=== PATIENT | male | born 1970 | race Caucasian/White ===

== ENCOUNTER 2017-03-08 18:45 | Inpatient (IN) ==
--- NOTE | 2017-03-08 19:13 | Emergency Department Note ---
START Narrative - START START: I examined this patient and my medical decision-making was reviewed with the Resident Physician. I agree with the documented findings, disposition and treatment plan as described except to the extent set forth below. Patient was independently seen and evaluated by myself. Patient was seen with the emergency medicine resident BRIAN BERNARDO. Please see copy of his notes for details of this ED encounter management and disposition. Briefly: A 47-year-old male by EMS from the local [facility] for hypernatremia". Patient's sodium is 125 potassium is 2.5 patient is unable tolerate oral supplements. unwitnessed hematemesis. Elevated transaminases. Patient will be admitted for potassium repletion and saline infusion. Admission pending.
--- NOTE | 2017-03-08 19:16 | Emergency Department Note ---
Disposition Clinical Impression: Hyponatremia, Hypochloremia, Hypokalemia Intractable nausea and vomiting Qualifiers: Vomiting type: unspecified Qualified Code(s): R11.2 - Nausea with vomiting, unspecified Alcohol withdrawal Qualifiers: Complication of substance-induced condition: uncomplicated Qualified Code(s): F10.230 - Alcohol dependence with withdrawal, uncomplicated Disposition: Admitted As Inpatient Condition: Fair [facility]errals: [facility] [Primary Care Provider] - Forms: Work/School Release, ED Satisfaction Letter Time of Disposition: 20:26 Nausea/Vomiting/Diarrhea HPI - General Chief complaint: ED Nausea/Vomiting/Diarrhea Stated complaint: hyponatremia Time Seen by Provider: 03/08/17 18:52 Source: patient, EMS Mode of arrival: EMS Limitations: no limitations Nursing Notes Reviewed: Yes Vital Signs Reviewed: Yes - History of Present Illness HPI Narrative: Patient is a 47-year-old male with past medical history of bipolar disorder, alcohol abuse, GERD. He presents today from the [facility] due to vomiting, detox, generalized body aches, concern for possible hematemesis. Patient states that he usually drinks a fifth of whiskey almost daily. About a week ago, patient decided to self detox. He has been experiencing generalized body aches, nausea, vomiting daily. Today he presented to the [facility] due to continued nausea and vomiting. While there, he had an episode of vomiting that was "tea-colored "an spelled like blood. He denied any bright red blood in vomit. Denies any significant pain in the abdomen. He is transferred here for further care. On patient's outside labs, he was also found to have hyponatremia at 127, hypokalemia at 2.4, low chloride 81. Mild elevation in total bilirubin at 1.8. AST and ALTs are elevated at 249 and 132 respectively. Hemoglobin stable at 17.1. White blood cell count 9.6. Vitals are currently stable. Currently, patient admits to continued nausea. No active vomiting at this time but the patient cannot tolerate any liquids. Otherwise, denies chest pain, shortness of breath, fevers, diarrhea. He has not had a bowel movement in 3-4 days. - Related Data Allergies Allergy/AdvReac Type Severity Reaction Status Date / Time bee venom protein (honey bee) Allergy Hives Verified 03/08/17 18:49 Poison Stephy Extract Allergy Hives Verified 03/08/17 18:49 All systems ED: reviewed and negative except as stated. Constitutional: Denies: fever Cardiovascular: Denies: chest pain, palpitations Respiratory: Denies: cough, dyspnea, wheezes, hemoptysis Gastrointestinal: Reports: nausea, vomiting, hematemesis (Possible) Genitourinary: Denies: urgency, dysuria, frequency, hematuria Past Medical History - Past Medical History Attestation: Yes The following information was validated with the patient. Source: patient Medical history: Reports: GERD Psychiatric history: Reports: bipolar - Social History Smoking Status: Current every day smoker Smokeless Tobacco Status: No Alcohol use: Reports: heavy, recent Drug use: Reports: none Physical Exam - General Limitations: no limitations General appearance: alert, in no apparent distress - Head Head exam: atraumatic, normocephalic, normal inspection - Eye Eye exam: Present: normal appearance, PERRL, EOMI - ENT ENT exam: normal exam, normal oropharynx, mucous membranes moist - Neck Neck exam: Present: normal inspection, full ROM, trachea midline - Chest Chest inspection: Present: normal inspection, symmetric chest wall rise. Absent : tenderness - Respiratory Respiratory exam: Present: normal lung sounds bilaterally - Cardiovascular Cardiovascular exam: Present: regular rate, normal rhythm, normal heart sounds - Abdominal Exam Abdominal exam: Present: soft, Non-Tender. Absent: tenderness, distention, guarding, rebound, rigidity - Extremities Exam Extremities exam: Present: normal inspection, full ROM. Absent: tenderness, pedal edema - Neurological Exam Neurological exam: Present: alert, oriented X3 - Psychiatric Psychiatric exam: Present: normal affect, normal mood - Skin Skin exam: Present: warm, dry, intact, normal color Course Course Narrative: Vitals within normal limits on exam. On patient's outside labs, he was also found to have hyponatremia at 127, hypokalemia at 2.4, low chloride 81. Mild elevation in total bilirubin at 1.8. AST and ALTs are elevated at 249 and 132 respectively. Hemoglobin stable at 17.1. White blood cell count 9.6. Vitals are currently stable. Currently, patient admits to continued nausea. No active vomiting at this time but the patient cannot tolerate any liquids. Otherwise, denies chest pain, shortness of breath, fevers, diarrhea. He has not had a bowel movement in 3-4 days. EKG showed normal sinus rhythm with no acute ST changes. Rate 89. CT of the abdomen and pelvis from outside facility on 03/08/2017 shows: "no CT evidence of pancreatitis. Small hiatal hernia with nonspecific moderate wall thickening of the distal esophagus and gastric fundus , which may be inflammatory in nature. Cannot exclude underlying mass or malignancy. Consider further evaluation with upper endoscopy. Mild nonspecific wall thickening of the transverse and descending colon." Vital Signs Temperature 98.3 F 03/08/17 18:48 Pulse Rate 96 03/08/17 18:48 Respiratory Rate 16 03/08/17 18:48 Blood Pressure 123/99 03/08/17 18:48 O2 Sat by Pulse Oximetry 98 03/08/17 18:48 Temperature 98.3 F 03/08/17 18:48 Pulse Rate 96 03/08/17 18:48 Respiratory Rate 16 03/08/17 18:48 Blood Pressure 123/99 03/08/17 18:48 O2 Sat by Pulse Oximetry 98 03/08/17 18:48 Oxygen Delivery Oxygen Delivery Room Air Nausea/Vomiting/Diarrhea - MDM Narrative Medical decision making narrative: Vitals within normal limits on exam. On patient's outside labs, he was also found to have hyponatremia at 127, hypokalemia at 2.4, low chloride 81. Mild elevation in total bilirubin at 1.8. AST and ALTs are elevated at 249 and 132 respectively. Hemoglobin stable at 17.1. White blood cell count 9.6. Vitals are currently stable. Currently, patient admits to continued nausea. No active vomiting at this time but the patient cannot tolerate any liquids. Otherwise, denies chest pain, shortness of breath, fevers, diarrhea. He has not had a bowel movement in 3-4 days. EKG showed normal sinus rhythm with no acute ST changes. Rate 89. CT of the abdomen and pelvis from outside facility on 03/08/2017 shows: "no CT evidence of pancreatitis. Small hiatal hernia with nonspecific moderate wall thickening of the distal esophagus and gastric fundus , which may be inflammatory in nature. Cannot exclude underlying mass or malignancy. Consider further evaluation with upper endoscopy. Mild nonspecific wall thickening of the transverse and descending colon." No hematemesis on current visit. Hgb stable. Will admit the patient for hypochloremia, hyponatremia, hypokalemia, intractable nausea and vomiting, alcohol withdrawal. Potassium 40 mEq and magnesium has been ordered for the patient along with IV fluids and zofran. Patient was givne 40mg of protonix at [facility]. WIll start on protonix drip. Coags, type and screen, repeat BMP ordered. I spoke with Dr. Bishop, he has requested that patient be switched to 0.9 NS with 20 meq and running at 150/hr. He has accepted for admission. - Medical Records Medical records reviewed: Yes I reviewed the patient's medical records. - Lab Data Lab results reviewed: Yes I reviewed the patient's lab results. - Radiology Data Radiology results reviewed: Yes I reviewed the patient's radiology results. - EKG Data EKG attestation: Yes I reviewed and interpreted this EKG. [email or web address] - [email or web address] Situation: Demographics, MOA Background: Presenting Complaint, Relevant PMH, Meds, & Allergies Assessment: Vital Signs, Course and respsone to treatment, Exam Concerns, Patient/Family Expectation, Pertinant Lab Results, Outstanding Labs Recommendation: Barrier(s) to disposition, Recommendation based on pending studies, treatments, or consults S.B.AViviana Report Given to: Dr. Edna Puga Repor Time: 20:26
[2017-03-08] MEDS ORDERED: Ondansetron 4 MG/2 ML VIAL IVP ONE (19:32)
[2017-03-08] MEDS ORDERED: Potassium Chloride 40 MEQ, Lidocaine 1% 2 ML in D5% in Water 500 ML IVPB ONE (19:56)
[2017-03-08] MEDS ORDERED: Magnesium Sulfate 1 GM in D5% in Water 100 ML IVPB ONE (19:57)
[2017-03-08] MEDS ORDERED: 0.9 % Sodium Chloride 1,000 ML IVC SCH (20:00)
[2017-03-08] MEDS ORDERED: 0.9 % Sodium Chloride w KCl 20 MEQ/1,000 ML MLS IVC SCH (20:30)
[2017-03-08] MEDS: Pantoprazole 40 MG in 0.9 % Sodium Chloride Mini Bag 100 ML IVC SCH (20:48)
[2017-03-08 21:12] LABS: INR 1.1
[2017-03-08 21:15] LABS: Activated Partial Thrombo Time 25.3 Seconds (26.0-36.0)
[2017-03-08 21:19] LABS: BUN/Creatinine Ratio 22 (6-26); Blood Urea Nitrogen 28 mg/dL (8-26); Carbon Dioxide 30 mEq/L (19-29); Chloride 87 mEq/L (98-109); Glucose 86 mg/dL (70-99); Osmolality,Calculated 277 (280-300); Sodium 131 mEq/L (136-145); eGFR For African Americans > 60 (> 60); eGFR For Non-African Americans > 60 (> 60)
[2017-03-08 21:24] LABS: Potassium 2.5 mEq/L (3.5-4.5)
[2017-03-08] MEDS ORDERED: Naloxone 0.4 MG/ML INJ IVP PRN (22:30)
[2017-03-08] MEDS ORDERED: Acetaminophen 325 MG TABLET PO PRN (22:30)
[2017-03-08] MEDS ORDERED: Ondansetron 4 MG/2 ML VIAL IVP PRN (22:30)
[2017-03-08] MEDS ORDERED: *HR* LORazepam 2 MG/ML VIAL IVP PRN (22:30)
[2017-03-08] MEDS ORDERED: *HR* Promethazine 25 MG/ML VIAL IVP PRN (22:30)
--- NOTE | 2017-03-08 22:51 | Internal Med History&Physical ---
Date of Encounter: 03/08/17 Time of Encounter: 22:00 Assessment and Plan (1) Alcohol withdrawal Current visit: Yes Status: Acute 1. Will place patient on CIWA protocol and start IV Ativan Q1H PRN per protocol. 2. Schedule Librium to blunt withdrawal. 3. Supplement Folate, Thiamine, MVI with IVF. 4. Follow up with [facility] upon discharge for ongoing rehab. Qualifiers: Complication of substance-induced condition: uncomplicated Qualified Code(s ): F10.230 - Alcohol dependence with withdrawal, uncomplicated (2) Pancreatitis Current visit: Yes Status: Acute 1. Will keep npo. 2. Hydrate with IVF. 3. Will provide IV antiemetics and opiates as needed for symptom control. 4. Will trend labs and follow clinically. Qualifiers: Chronicity: acute Pancreatitis type: alcohol induced Acute pancreatitis complication: no infection or necrosis Qualified Code(s): K85.20 - Alcohol induced acute pancreatitis without necrosis or infection (3) Acute kidney injury Current visit: Yes Status: Acute 1. Likely due to dehydration. 2. Hydrate with IVF and monitor renal panel. (4) DVT prophylaxis Current visit: Yes Status: Acute 1. EPCD's. Internal Medicine - H&P: HPI Chief complaint[facility]; [facility] withdrawal Admitted From: Emergency Dept Plans for Post Hospital Care: Transfer [facility] ([facility]) History of present illness: Mr. Miramontes is a 47 year old male who was transferred from the [facility] to our ER for concerns of alcohol withdrawal. He checked himself in today for alcohol rehabilitation. However, he stopped drinking alcohol about 2-3 days ago and was having withdrawal symptoms. He was sent to the urgent care who then sent him to the ER here. He had laboratory evidence of pancreatitis. CT scan was performed which did not show any pancreatitis, but he did have hiatal hernia and moderate thickening of his esophagus. No labs were drawn in ER until I requested them. I reviewed his labs from the [facility], which revealed profound hypokalemia and some hyponatremia. Upon my assessment of the patient, he states he feels better. He has been having protracted nausea and vomiting for the last couple days and as recently as one hour ago. He denies any fevers or diarrhea. He denies any hallucinations. He has been shaky and jittery, however. He has also been quite tremulous. He stopped drinking about 2 1/2 days ago. He states he normally drinks about 1/5 of hard liquor every day. He denies any history of cirrhosis, variceal bleeds, or any prior GI bleeding. He does have a history of GERD which is easily treated by Prilosec. Past Med Surg Social Fam HX - Past Medical History Attestation: Yes The following information was validated with the patient. Source: patient, old records reviewed ([place] records) Medical history: GERD, other (Alcoholism) Psychiatric history: bipolar - Past Surgical History Surgical History: no surgical history ( ) - Social History Smoking Status: Current every day smoker Packs per day: half a pack Smokeless Tobacco Status: No Alcohol use: heavy, recent Drug use: none - Family History Father Living Status: Still Living Hx Family Medical Disorders: Yes (Alcoholism) Mother Hx Family Endocrine Disorder: Yes (Renal failure) Brother Hx Family Endocrine Disorder: Yes (Type 2 Diabetic) Internal Medicine - H&P: Meds Omeprazole [PriLOSEC] 20 mg PO DAILY 03/08/17 [History] 3 Allergy/AdvReac Type Severity Reaction Status Date / Time bee venom protein (honey bee) Allergy Hives Verified 03/08/17 18:49 Poison Stephy Extract Allergy Hives Verified 03/08/17 18:49 - Constitutional Constitutional: no chills, no fever(s), no night sweats - EENT Eyes: no blurry vision, no change in vision Ears: no ear pain, no tinnitus Nose, mouth and throat: no nasal congestion, no sinus pressure, no sore throat - Cardiovascular Cardiovascular ROS IM: no chest pain, no dyspnea, no dyspnea on exertion - Respiratory Respiratory: no cough, no hemoptysis - Gastrointestinal Gastrointestinal: abdominal pain, heartburn, nausea, vomiting, no diarrhea, no hematemesis, no hematochezia, no melena - Genitourinary Genitourinary ROS male: no dysuria, no flank pain, no hematuria - Musculoskeletal Musculoskeletal ROS IM: no atrophy, no back pain - Integumentary Integumentary IM: no rash, no jaundice - Neurological Neurological ROS: tremor(s), no confusion, no dizziness, no focal weakness, no frequent falls, no headache(s) - Psychiatric Psychiatric: no anxiety, no depression, no hallucinations - Endocrine Endocrine IM: no polydipsia, no polyuria - Allergic/Immunologic Allergic/Immunologic: GI upset with certain foods, no wheezing - Constitutional Vitals: Temp Pulse Resp BP Pulse Ox 98.1 F 18 15 108/71 95 03/08/17 21:46 03/08/17 21:46 03/08/17 21:46 03/08/17 21:46 03/08/17 21:46 General appearance: Present: mild distress, A&O X 3, answers questions appropriately - Head Head exam: Present: atraumatic, normal inspection - Eye Eye exam: Present: EOMI, PERRL. Absent: scleral icterus Pupils: Present: normal accommodation - ENT ENT exam: Present: mucous membranes dry, normal exam - Neck Neck exam general surgery: Present: full ROM, supple. Absent: tenderness - Respiratory Respiratory exam: Present: CTAB. Absent: rales, rhonchi, wheezes - Cardiovascular Cardiovascular exam: Present: RRR, +S1, +S2. Absent: diastolic murmur, systolic murmur - GI/Abdominal GI/Abdominal exam: Present: normal bowel sounds, tenderness (mild epigastric pain), no peritoneal signs. Absent: guarding, hepatomegaly, mass, rebound, splenomegaly - Extremities Exam Extremities exam: Present: full ROM, warm, radial pulses palpable and symmetrical. Absent: calf tenderness, joint swelling, pedal edema, tenderness - Back Exam Back exam: Present: normal inspection. Absent: CVA tenderness (L), CVA tenderness (R) - Neurological Exam Neurological exam: Present: alert, CN II-XII intact, oriented X3, no focal deficits Additional comments: mild tremors and jitters at rest; worse with activity - Psychiatric Psychiatric exam: Present: anxious. Absent: depressed - Skin Skin exam: Present: dry, warm. Absent: rash Internal Med - H&P Results - Labs CBC & Chem 7: 03/08/17 20:49 Labs: BMP 03/08/17 20:49 Sodium 131 L Potassium 2.5 L* Chloride 87 L Carbon Dioxide 30 H BUN 28 H Creatinine 1.26 H Glucose [address] abdomen report from [facility] reviewed: moderate wall thickening of distal esophagus; no CT evidence of pancreatitis Amylase 199 Lipase 1036
[2017-03-08 22:56] LABS: Amylase 191 Units/L (25-125); Lipase 134 Units/L (8-78)
[2017-03-08] MEDS ORDERED: *HR* Morphine 2 MG/ML SYRINGE IVP PRN (23:27)
[2017-03-08] MEDS: Nicotine 21 MG PATCH.TD24 TD SCH (23:30)
[2017-03-08] MEDS: Potassium Chloride 40 MEQ in D5% in 0.9% NACL 1,000 ML IVC SCH (23:31)
[2017-03-09] MEDS: Pantoprazole 40 MG in 0.9 % Sodium Chloride Mini Bag 100 ML IVC SCH ×2 (01:22→06:38)
[2017-03-09 05:44] LABS: Basophils % 1.3 %
[2017-03-09 05:46] LABS: Basophils # 0.1 K/mcL (0.0-0.2); Eosinophils # 0.1 K/mcL (0.0-0.6); Eosinophils % 0.8 %; Hematocrit 40.9 % (37.5-50.1); Hemoglobin 14.2 g/dL (12.9-16.9); Immature Platelets 12.9 % (1.1-6.1); Lymphocytes # 2.9 K/mcL (0.6-4.6); Lymphocytes % 37.9 %; Mean Corpuscular HGB Conc 34.7 g/dL (31.6-35.5); Mean Corpuscular Hemoglobin 30.5 pg (28.0-33.3); Mean Platelet Volume 11.1 fL (9.4-12.4); Monocytes # 0.6 K/mcL (0.0-1.3); Monocytes % 7.7 %; Neutrophils # 3.7 K/mcL (1.6-8.9); Red Blood Count 4.65 M/mcL (4.19-5.50); Red Cell Distribution Width 14.5 % (11.5-14.5); Segmented Neutrophils % 48.3 %
[2017-03-09 05:48] LABS: INR 1.1; Prothrombin Time 11.3 Seconds (9.4-12.1)
[2017-03-09 05:50] LABS: Activated Partial Thrombo Time 24.9 Seconds (26.0-36.0)
[2017-03-09 06:07] LABS: Platelet Count 74 K/mcL (140-400)
[2017-03-09 06:08] LABS: Large Platelets Present (Not Present); Platelet Estimate Decreased (Normal)
[2017-03-09 06:09] LABS: Anisocytosis 1+ (Not Present); Polychromasia 1+ (Not Present); Reactive Lymphocytes Present (Not Present)
[2017-03-09 06:24] LABS: Alanine Aminotransferase 98 Units/L (0-55); Alkaline Phosphatase 61 Units/L (38-126); Amylase 194 Units/L (25-125); BUN/Creatinine Ratio 19 (6-26); Bilirubin,Total 1.6 mg/dL (0.2-1.2); Blood Urea Nitrogen 23 mg/dL (8-26); Calcium 8.2 mg/dL (8.6-10.8); Carbon Dioxide 30 mEq/L (19-29); Chloride 92 mEq/L (98-109); Glucose 95 mg/dL (70-99); Lipase 148 Units/L (8-78); Magnesium 1.6 mg/dL (1.6-2.6); Osmolality,Calculated 277 (280-300); Potassium 2.7 mEq/L (3.5-4.5); Sodium 132 mEq/L (136-145); Total Protein 6.3 g/dL (6.0-8.3); eGFR For African Americans > 60 (> 60); eGFR For Non-African Americans > 60 (> 60)
[2017-03-09 06:51] LABS: Aspartate Amino Transferase 145 Units/L (5-34)
[2017-03-09 07:35] LABS: Albumin 3.6 g/dL (3.5-5.0); Albumin/Globulin Ratio 1.3 (1.1-2.2); Globulin 2.7 g/dL (2.4-3.5)
[2017-03-09] MEDS ORDERED: *HR* LORazepam 2 MG/ML VIAL IVP PRN ×2 (08:05)
[2017-03-09] MEDS: Potassium Chloride 40 MEQ in D5% in 0.9% NACL 1,000 ML IVC SCH ×2 (09:39→23:21)
[2017-03-09] MEDS: Nicotine 21 MG PATCH.TD24 TD SCH (09:41)
--- NOTE | 2017-03-09 13:28 | Internal Med Progress Note ---
Date of Encounter: 03/09/17 Time of Encounter: 10:00 - Assessment and plan (1) Hypokalemia Current Visit: Yes Status: Acute Assessment and plan: Will continue potassium supplement. Follow up BMP (2) Alcohol withdrawal Current Visit: Yes Status: Acute Assessment and plan: Patient has no withdrawal symptoms at this point. We will continue closely monitor patient. Follow CIWA protocol. Patient is on Librium 25 mg 4 times a day. Give pt thiamine and folic acid supplement Qualifiers: Complication of substance-induced condition: uncomplicated Qualified Code(s ): F10.230 - Alcohol dependence with withdrawal, uncomplicated (3) Pancreatitis Current Visit: Yes Status: Acute Assessment and plan: Lipase is elevated. Patient denies abdominal pain. Will gradually advance diet and closely monitor patient. Qualifiers: Chronicity: acute Pancreatitis type: alcohol induced Acute pancreatitis complication: no infection or necrosis Qualified Code(s): K85.20 - Alcohol induced acute pancreatitis without necrosis or infection (4) Acute kidney injury Current Visit: Yes Status: Acute Assessment and plan: Improved after hydration (5) DVT prophylaxis Current Visit: Yes Status: Acute Assessment and plan: EPCDs - Time Spent With Patient 25 - 35 minutes - Subjective Interval history: Patient is a 47-year-old male transferred from the [place] for alcohol withdraw symptoms. His past medical history is significant for alcoholism, GERD. I saw and examined the patient today. Patient is awake alert, oriented 3. Denies nausea vomiting, diaphoresis, tremors. Vital signs stable. Denies abdominal pain. On Librium 25 mg by mouth 4 times a day for withdrawal prevention. On CIWA protocol. Advance diet as tolerated. - Constitutional Vitals: Temp Pulse Resp BP Pulse Ox 97.5 F L 87 16 116/96 95 03/09/17 03:00 03/09/17 08:44 03/09/17 08:44 03/09/17 08:44 03/08/17 22:00 General appearance: Present: mild distress, A&O X 3, answers questions appropriately - Head Head exam: Present: atraumatic, normocephalic - Eye Eye exam: Present: PERRL, conjuntiva pink, sclera anicteric Pupils: Present: PERRL - Neck Neck exam general surgery: Present: supple, trachea midline. Absent: lymphadenopathy - Respiratory Respiratory exam: Present: CTAB. Absent: accessory muscle use, rales, rhonchi, wheezes - Cardiovascular Cardiovascular exam: Present: RRR, +S1, +S2. Absent: diastolic murmur, gallop, rubs, systolic murmur - GI/Abdominal GI/Abdominal exam: Present: normal bowel sounds, soft, no peritoneal signs. Absent: distended, tenderness - Extremities Exam Extremities exam: Present: warm, radial pulses palpable and symmetrical. Absent : calf tenderness, cyanotic, pedal edema - Neurological Exam Neurological exam: Present: CN II-XII intact, oriented X3, no focal deficits. Absent: pronater drift, facial droop, speech deficit - Skin Skin exam: Present: dry, intact Internal Medicine: Result - Labs CBC & Chem 7: 03/09/17 05:18 03/09/17 05:18 Labs: Short CBC 03/09/17 Range/Units 05:18 WBC 7.6 (4.3-11.1) K/mcL Hgb 14.2 (12.9-16.9) g/dL Hct 40.9 (37.5-50.1) % Plt Count 74 L (140-400) K/mcL Neutrophils # 3.7 (1.6-8.9) K/mcL BMP 03/08/17 03/09/17 20:49 05:18 Sodium 131 L 132 L Potassium 2.5 L* 2.7 L Chloride 87 L 92 L Carbon Dioxide 30 H 30 H BUN 28 H 23 Creatinine 1.26 H 1.22 Glucose 86 95 Calcium 9.0 8.2 L Liver Function 03/09/17 Range/Units 05:18 Total Bilirubin 1.6 H (0.2-1.2) mg/dL AST 145 H (5-34) Units/L ALT 98 H (0-55) Units/L Alkaline Phosphatase 61 (38-126) Units/L Albumin 3.6 (3.5-5.0) g/dL - ABG Interpretation ABG results: PT/INR, D-dimer PT 11.3 Seconds (9.4-12.1) 03/09/17 05:18 Consult Discharge Plan - Plan [facility]errals: [facility] [Primary Care Provider] -
[2017-03-09] MEDS: Thiamine (B-1) 100 MG, Folic Acid 1 MG, MVI, adult with vitamin K 10 ML in 0.9 % Sodi... IVPB SCH (17:52)
[2017-03-10 06:27] LABS: Red Cell Distribution Width 14.6 % (11.5-14.5); Segmented Neutrophils % 35.1 %
[2017-03-10 06:28] LABS: Basophils # 0.1 K/mcL (0.0-0.2); Basophils % 2.1 %; Eosinophils # 0.1 K/mcL (0.0-0.6); Eosinophils % 1.3 %; Hematocrit 39.6 % (37.5-50.1); Hemoglobin 13.8 g/dL (12.9-16.9); Immature Granulocytes % 4.9 % (0-4); Lymphocytes # 3.1 K/mcL (0.6-4.6); Lymphocytes % 45.7 %; Mean Corpuscular HGB Conc 34.8 g/dL (31.6-35.5); Mean Corpuscular Hemoglobin 31.4 pg (28.0-33.3); Mean Corpuscular Volume 90.2 fL (83.0-100.0); Monocytes # 0.7 K/mcL (0.0-1.3); Monocytes % 10.9 %; Red Blood Count 4.39 M/mcL (4.19-5.50)
[2017-03-10 06:47] LABS: Alanine Aminotransferase 103 Units/L (0-55); Alkaline Phosphatase 60 Units/L (38-126); Aspartate Amino Transferase 120 Units/L (5-34); BUN/Creatinine Ratio 14 (6-26); Bilirubin,Total 1.2 mg/dL (0.2-1.2); Calcium 8.4 mg/dL (8.6-10.8); Carbon Dioxide 25 mEq/L (19-29); Chloride 104 mEq/L (98-109); Globulin 2.9 g/dL (2.4-3.5); Glucose 87 mg/dL (70-99); Lipase 118 Units/L (8-78); Osmolality,Calculated 281 (280-300); Potassium 3.6 mEq/L (3.5-4.5); Sodium 136 mEq/L (136-145); Total Protein 5.9 g/dL (6.0-8.3); eGFR For African Americans > 60 (> 60); eGFR For Non-African Americans > 60 (> 60)
[2017-03-10 06:49] LABS: Blood Urea Nitrogen 12 mg/dL (8-26)
[2017-03-10 07:18] LABS: Neutrophils # 2.4 K/mcL (1.6-8.9); Platelet Count 86 K/mcL (140-400)
[2017-03-10] MEDS ORDERED: Pantoprazole 40 MG VIAL IVP SCH (09:00)
[2017-03-10] MEDS: Folic Acid 1 MG TABLET PO SCH (09:41)
[2017-03-10] MEDS: Nicotine 21 MG PATCH.TD24 TD SCH (09:41)
[2017-03-10] MEDS: Thiamine (B-1) 100 MG TABLET PO SCH (09:41)
[2017-03-10] MEDS: Potassium Chloride 40 MEQ in D5% in 0.9% NACL 1,000 ML IVC SCH ×2 (10:29)
--- NOTE | 2017-03-10 15:16 | Internal Med Progress Note ---
Date of Encounter: 03/10/17 Time of Encounter: 09:00 - Assessment and plan (1) Hypokalemia Current Visit: Yes Status: Acute Assessment and plan: Improved after supplement. Follow up BMP (2) Alcohol withdrawal Current Visit: Yes Status: Acute Assessment and plan: Patient has no withdrawal symptoms at this point. We will continue closely monitor patient. Follow CIWA protocol. Taper down Librium to 25 mg 2 times a day. Give pt thiamine and folic acid supplement Qualifiers: Complication of substance-induced condition: uncomplicated Qualified Code(s ): F10.230 - Alcohol dependence with withdrawal, uncomplicated (3) Pancreatitis Current Visit: Yes Status: Acute Assessment and plan: Lipase is elevated on admission. Patient denies abdominal pain. Lipase trend down now. Will gradually advance diet and closely monitor patient. Qualifiers: Chronicity: acute Pancreatitis type: alcohol induced Acute pancreatitis complication: no infection or necrosis Qualified Code(s): K85.20 - Alcohol induced acute pancreatitis without necrosis or infection (4) Acute kidney injury Current Visit: Yes Status: Acute Assessment and plan: Improved after hydration (5) DVT prophylaxis Current Visit: Yes Status: Acute Assessment and plan: EPCDs - Time Spent With Patient 25 - 35 minutes - Subjective Interval history: Patient is a 47-year-old male transferred from the [place] for alcohol withdraw symptoms. His past medical history is significant for alcoholism, GERD. I saw and examined the patient today. Patient is awake alert, oriented 3. Denies nausea vomiting, diaphoresis, tremors. Vital signs stable. Denies abdominal pain. On Librium 25 mg by mouth 4 times a day for withdrawal prevention. Taper down to BID today. On CIWA protocol. Advance diet as tolerated. - Constitutional Vitals: Temp Pulse Resp BP Pulse Ox 97.7 F 91 18 127/86 98 03/10/17 12:25 03/10/17 12:25 03/10/17 12:25 03/10/17 12:25 03/10/17 04:00 General appearance: Present: mild distress, A&O X 3, answers questions appropriately - Head Head exam: Present: atraumatic, normocephalic - Eye Eye exam: Present: PERRL, conjuntiva pink, sclera anicteric Pupils: Present: PERRL - Neck Neck exam general surgery: Present: supple, trachea midline. Absent: lymphadenopathy - Respiratory Respiratory exam: Present: CTAB. Absent: accessory muscle use, rales, rhonchi, wheezes - Cardiovascular Cardiovascular exam: Present: RRR, +S1, +S2. Absent: diastolic murmur, gallop, rubs, systolic murmur - GI/Abdominal GI/Abdominal exam: Present: normal bowel sounds, soft, no peritoneal signs. Absent: distended, tenderness - Extremities Exam Extremities exam: Present: warm, radial pulses palpable and symmetrical. Absent : calf tenderness, cyanotic, pedal edema - Neurological Exam Neurological exam: Present: CN II-XII intact, oriented X3, no focal deficits. Absent: pronater drift, facial droop, speech deficit - Skin Skin exam: Present: dry, intact Internal Medicine: Result - Labs CBC & Chem 7: 03/10/17 05:34 03/10/17 05:34 Labs: Short CBC 03/10/17 Range/Units 05:34 WBC 6.7 (4.3-11.1) K/mcL Hgb 13.8 (12.9-16.9) g/dL Hct 39.6 (37.5-50.1) % Plt Count 86 L (140-400) K/mcL Neutrophils # 2.4 (1.6-8.9) K/mcL BMP 03/10/17 05:34 Sodium 136 Potassium 3.6 Chloride 104 Carbon Dioxide 25 BUN 12 D Creatinine 0.84 Glucose 87 Calcium 8.4 L Liver Function 03/10/17 Range/Units 05:34 Total Bilirubin 1.2 (0.2-1.2) mg/dL AST 120 H (5-34) Units/L ALT 103 H (0-55) Units/L Alkaline Phosphatase 60 (38-126) Units/L Albumin 3.0 L (3.5-5.0) g/dL - ABG Interpretation ABG results: PT/INR, D-dimer PT 11.3 Seconds (9.4-12.1) 03/09/17 05:18 Consult Discharge Plan - Plan Referrals: [facility] [Primary Care Provider] -
[2017-03-10] MEDS: Thiamine (B-1) 100 MG, Folic Acid 1 MG, MVI, adult with vitamin K 10 ML in 0.9 % Sodi... IVPB SCH (16:51)
[2017-03-11 04:25] LABS: Basophils # 0.2 K/mcL (0.0-0.2); Basophils % 1.8 %; Eosinophils # 0.1 K/mcL (0.0-0.6); Eosinophils % 1.4 %; Hematocrit 39.2 % (37.5-50.1); Hemoglobin 13.3 g/dL (12.9-16.9); Immature Granulocytes % 4.6 % (0-4); Lymphocytes # 3.5 K/mcL (0.6-4.6); Lymphocytes % 37.3 %; Mean Corpuscular HGB Conc 33.9 g/dL (31.6-35.5); Mean Corpuscular Volume 91.4 fL (83.0-100.0); Mean Platelet Volume 10.8 fL (9.4-12.4); Monocytes # 1.2 K/mcL (0.0-1.3); Monocytes % 12.6 %; Neutrophils # 3.9 K/mcL (1.6-8.9); Platelet Count 107 K/mcL (140-400); Red Blood Count 4.29 M/mcL (4.19-5.50); Red Cell Distribution Width 15.3 % (11.5-14.5); Segmented Neutrophils % 42.3 %
[2017-03-11 04:38] LABS: BUN/Creatinine Ratio 21 (6-26); Blood Urea Nitrogen 19 mg/dL (8-26); Calcium 8.7 mg/dL (8.6-10.8); Carbon Dioxide 23 mEq/L (19-29); Chloride 105 mEq/L (98-109); Glucose 97 mg/dL (70-99); Osmolality,Calculated 284 (280-300); Potassium 3.9 mEq/L (3.5-4.5); Sodium 136 mEq/L (136-145); eGFR For African Americans > 60 (> 60); eGFR For Non-African Americans > 60 (> 60)
[2017-03-11] MEDS: Thiamine (B-1) 100 MG TABLET PO SCH (09:15)
[2017-03-11] MEDS: Folic Acid 1 MG TABLET PO SCH (09:15)
[2017-03-11] MEDS: Nicotine 21 MG PATCH.TD24 TD SCH (09:16)
--- NOTE | 2017-03-11 19:10 | Internal Med Progress Note ---
Date of Encounter: 03/11/17 Time of Encounter: 10:00 - Assessment and plan (1) Hypokalemia Current Visit: Yes Status: Acute Assessment and plan: Improved after supplement. Follow up BMP (2) Alcohol withdrawal Current Visit: Yes Status: Acute Assessment and plan: Patient has no withdrawal symptoms at this point. We will continue closely monitor patient. Follow CIWA protocol. Taper down Librium to 25 mg 2 times a day. Give pt thiamine and folic acid supplement Qualifiers: Complication of substance-induced condition: uncomplicated Qualified Code(s ): F10.230 - Alcohol dependence with withdrawal, uncomplicated (3) Pancreatitis Current Visit: Yes Status: Acute Assessment and plan: Lipase is elevated on admission. Patient denies abdominal pain. Lipase trend down now. Will gradually advance diet and closely monitor patient. Qualifiers: Chronicity: acute Pancreatitis type: alcohol induced Acute pancreatitis complication: no infection or necrosis Qualified Code(s): K85.20 - Alcohol induced acute pancreatitis without necrosis or infection (4) Acute kidney injury Current Visit: Yes Status: Acute Assessment and plan: Improved after hydration (5) DVT prophylaxis Current Visit: Yes Status: Acute Assessment and plan: EPCDs (6) Suicidal ideation Current Visit: Yes Status: Acute Assessment and plan: Patient is threatening to kill himself by gun. Not threatened to kill/harm other people. We will place patient on one-to-one sitter, suicide precaution, and psych consult - Time Spent With Patient 25 - 35 minutes - Subjective Interval history: Patient is a 47-year-old male transferred from the [place] for alcohol withdraw symptoms. His past medical history is significant for alcoholism, GERD. I saw and examined the patient today. Patient is awake alert, oriented 3. Denies nausea vomiting, diaphoresis, tremors. Vital signs stable. Denies abdominal pain. On Librium 25 mg by mouth 2 times a day for withdrawal prevention. On CIWA protocol. Advance diet as tolerated. Patient had upset after social professionals [facility], and said he will kill himself. Will place patient on one-to- one sitter, suicide precaution, and consults psychiatry. - Constitutional Vitals: Temp Pulse Resp BP Pulse Ox 97.9 F 96 16 149/100 97 03/11/17 17:50 03/11/17 17:50 03/11/17 17:50 03/11/17 17:50 03/11/17 17:50 General appearance: Present: mild distress, A&O X 3, answers questions appropriately - Head Head exam: Present: atraumatic, normocephalic - Eye Eye exam: Present: PERRL, conjuntiva pink, sclera anicteric Pupils: Present: PERRL - Neck Neck exam general surgery: Present: supple, trachea midline. Absent: lymphadenopathy - Respiratory Respiratory exam: Present: CTAB. Absent: accessory muscle use, rales, rhonchi, wheezes - Cardiovascular Cardiovascular exam: Present: RRR, +S1, +S2. Absent: diastolic murmur, gallop, rubs, systolic murmur - GI/Abdominal GI/Abdominal exam: Present: normal bowel sounds, soft, no peritoneal signs. Absent: distended, tenderness - Extremities Exam Extremities exam: Present: warm, radial pulses palpable and symmetrical. Absent : calf tenderness, cyanotic, pedal edema - Neurological Exam Neurological exam: Present: CN II-XII intact, oriented X3, no focal deficits. Absent: pronater drift, facial droop, speech deficit - Skin Skin exam: Present: dry, intact Internal Medicine: Result - Labs CBC & Chem 7: 03/11/17 03:47 03/11/17 03:47 Labs: Short CBC 03/11/17 Range/Units 03:47 WBC 9.3 (4.3-11.1) K/mcL Hgb 13.3 (12.9-16.9) g/dL Hct 39.2 (37.5-50.1) % Plt Count 107 L (140-400) K/mcL Neutrophils # 3.9 (1.6-8.9) K/mcL BMP 03/11/17 03:47 Sodium 136 Potassium 3.9 Chloride 105 Carbon Dioxide 23 BUN 19 Creatinine 0.90 Glucose 97 Calcium 8.7 - ABG Interpretation ABG results: PT/INR, D-dimer PT 11.3 Seconds (9.4-12.1) 03/09/17 05:18 Consult Discharge Plan - Plan [facility]errals: [facility] [Primary Care Provider] -
[2017-03-12] MEDS: Thiamine (B-1) 100 MG TABLET PO SCH (10:01)
[2017-03-12] MEDS: Folic Acid 1 MG TABLET PO SCH (10:01)
[2017-03-12] MEDS: Nicotine 21 MG PATCH.TD24 TD SCH (10:02)
--- NOTE | 2017-03-12 16:06 | Consult Note ---
Date of Encounter: 03/12/17 Time of Encounter: 12:00 Assessment & Recommendation (1) Major depress dis, severe Current visit: Yes Status: Acute Assessment & Recommendation: patient is suicidal and danger to self , needs inpatient psychiatric treatment. start celexa 10 mg am. (2) Alcohol withdrawal Current visit: Yes Status: Acute Qualifiers: Complication of substance-induced condition: uncomplicated Qualified Code(s ): F10.230 - Alcohol dependence with withdrawal, uncomplicated History of Present Illness Requesting Physician: Francis Rodrigues MD Reason for consult: suicidal ideation History of present illness: Mr. Miramontes is a 47 year old male consulted today for suicidal ideation. Mr. Miramontes was transferred from [facility] to [facility] for withdrawl stabilization. Patient states he has been drinking daily and 1/5 hard liquor or more , he went to [place] [facility] to get admitted and as per him he vomited and had withdrawl so they sent him here. as per patient he is feeling very depressed and doesnot want to live , having lot of suicidal thoughts i have been thinking how to do , he has thought about plans and making plans, he also resigned from his job , has multiple stress. he has been in detox multiple times, also psych inpatient , multiple suicide attempts ,in 2012 has banged his head and put toothbrush thru his nose and was in ICU as per him. at present significantly depress, guilt, hopeless and suicidal with plan. he denies any legal problems related to alcohol . denies any psychosis, adolfo. a/p Major depressive disorder with suicidal idea need 1;1 patient need inpatient psych. for his safety and atabilization. start celexa 10 mg am . Thank you for consult. CC: Francis Rodrigues MD Past Med Surg Social Fam HX - Past Medical History Medical history: GERD, other (Alcoholism) - Past Psychiatric History Psychiatric history: Reports: anxiety, depression, previous psychiatric hospitalization Family psychiatric history: Unknown Family History of Suicide: Unknown - Past Surgical History Surgical History: no surgical history ( ) - Social History Smoking Status: Current every day smoker Smokeless Tobacco Status: No Alcohol use: heavy, recent Drug use: none Occupational status: unemployed Current living situation: Home, With Family Activity Level: Independent ambulation Recent Out of Country Travel Within the Last 8 Weeks: No Exposure or Possible Exposure to Illness During Travel: No - Family History Father Living Status: Still Living Hx Family Medical Disorders: Yes (Alcoholism) Mother Hx Family Endocrine Disorder: Yes (Renal failure) Brother Hx Family Endocrine Disorder: Yes (Type 2 Diabetic) Medications & Allergies Omeprazole [PriLOSEC] 20 mg PO DAILY 03/08/17 [History] 3 Allergy/AdvReac Type Severity Reaction Status Date / Time bee venom protein (honey bee) Allergy Hives Verified 03/08/17 18:49 Poison Stephy Extract Allergy Hives Verified 03/08/17 18:49 Review of Systems Psychiatric: Reports: depression, anxiety, suicidal ideation, anhedonia, difficulty concentrating, hopelessness Mental Status Exam Patient orientation: Yes Person, Yes Time, Yes Place Level of alertness: Alert Patient appearance: Appropriate Behavior: cooperative, withdrawn Psychomotor activity: Slowed Eye contact: Maintains Eye Contact Mood description: Depressed, Anxious Affect description: congruent with mood, dysphoric Speech pattern: Coherent Speech volume: Normal Thought content: Yes Suicidal ideation Attention span: Capable of Focused Attention Memory description: Grossly Intact Patient reliability: Reliable Historian Intelligence estimate: Average Judgment: Limited Insight: Partial Results - Vital Signs Vital signs: Temp Pulse Resp BP Pulse Ox 97.1 F L 102 16 141/91 93 03/12/17 10:28 03/12/17 10:28 03/12/17 10:28 03/12/17 10:28 03/12/17 10:28 - Labs Labs: Laboratory Last Values WBC 9.3 K/mcL (4.3-11.1) 03/11/17 03:47 RBC 4.29 M/mcL (4.19-5.50) 03/11/17 03:47 Hgb 13.3 g/dL (12.9-16.9) 03/11/17 03:47 Hct 39.2 % (37.5-50.1) 03/11/17 03:47 MCV 91.4 fL (83.0-100.0) 03/11/17 03:47 MCH 31.0 pg (28.0-33.3) 03/11/17 03:47 MCHC 33.9 g/dL (31.6-35.5) 03/11/17 03:47 RDW 15.3 % (11.5-14.5) H 03/11/17 03:47 Plt Count 107 K/mcL (140-400) L 03/11/17 03:47 MPV 10.8 fL (9.4-12.4) 03/11/17 03:47 Immature Gran % 4.6 % (0-4) H 03/11/17 03:47 Seg Neutrophils % 42.3 % 03/11/17 03:47 Lymphocytes % 37.3 % 03/11/17 03:47 Monocytes % 12.6 % 03/11/17 03:47 Eosinophils % 1.4 % 03/11/17 03:47 Basophils % 1.8 % 03/11/17 03:47 Neutrophils # 3.9 K/mcL (1.6-8.9) 03/11/17 03:47 Lymphocytes # 3.5 K/mcL (0.6-4.6) 03/11/17 03:47 Monocytes # 1.2 K/mcL (0.0-1.3) 03/11/17 03:47 Eosinophils # 0.1 K/mcL (0.0-0.6) 03/11/17 03:47 Basophils # 0.2 K/mcL (0.0-0.2) 03/11/17 03:47 Reactive Lymphocytes Present (Not Present) A 03/09/17 05:18 Platelet Estimate Decreased (Normal) L 03/09/17 05:18 Large Platelets Present (Not Present) A 03/09/17 05:18 Immature Plt Fraction 10.0 % (1.1-6.1) H 03/10/17 05:34 Polychromasia 1+ (Not Present) A 03/09/17 05:18 Anisocytosis 1+ (Not Present) A 03/09/17 05:18 PT 11.3 Seconds (9.4-12.1) 03/09/17 05:18 INR 1.1 03/09/17 05:18 APTT 24.9 Seconds (26.0-36.0) L 03/09/17 05:18 Sodium 136 mEq/L (136-145) 03/11/17 03:47 Potassium 3.9 mEq/L (3.5-4.5) 03/11/17 03:47 Chloride 105 mEq/L (98-109) 03/11/17 03:47 Carbon Dioxide 23 mEq/L (19-29) 03/11/17 03:47 BUN 19 mg/dL (8-26) 03/11/17 03:47 Creatinine 0.90 mg/dL (0.72-1.25) 03/11/17 03:47 Est GFR ( Amer) > 60 (> 60) 03/11/17 03:47 Est GFR (Non-Af Amer) > 60 (> 60) 03/11/17 03:47 BUN/Creatinine Ratio 21 (6-26) 03/11/17 03:47 Glucose 97 mg/dL (70-99) 03/11/17 03:47 POC Glucose 80 (58-89) 03/10/17 05:34 Calculated Osmolality 284 (280-300) 03/11/17 03:47 Calcium 8.7 mg/dL (8.6-10.8) 03/11/17 03:47 Magnesium 1.6 mg/dL (1.6-2.6) 03/09/17 05:18 Total Bilirubin 1.2 mg/dL (0.2-1.2) 03/10/17 05:34 AST 120 Units/L (5-34) H 03/10/17 05:34 ALT 103 Units/L (0-55) H 03/10/17 05:34 Alkaline Phosphatase 60 Units/L (38-126) 03/10/17 05:34 Serum Total Protein 5.9 g/dL (6.0-8.3) L 03/10/17 05:34 Albumin 3.0 g/dL (3.5-5.0) L 03/10/17 05:34 Globulin 2.9 g/dL (2.4-3.5) 03/10/17 05:34 Albumin/Globulin Ratio 1.0 (1.1-2.2) L 03/10/17 05:34 Amylase 194 Units/L (25-125) H 03/09/17 05:18 Lipase 118 Units/L (8-78) H 03/10/17 05:34 Blood Type O POSITIVE 03/08/17 20:49 Antibody Screen NEGATIVE 03/08/17 20:49 Consult Discharge Plan - Plan [facility]errals: [facility] [Primary Care Provider] -
--- NOTE | 2017-03-12 19:54 | Internal Med Progress Note ---
Date of Encounter: 03/12/17 Time of Encounter: 08:00 - Assessment and plan (1) Hypokalemia Current Visit: Yes Status: Acute Assessment and plan: Improved after supplement. Follow up BMP (2) Alcohol withdrawal Current Visit: Yes Status: Acute Assessment and plan: Patient has no withdrawal symptoms at this point. We will continue closely monitor patient. Follow CIWA protocol. Taper down Librium to 25 mg daily. Give pt thiamine and folic acid supplement Qualifiers: Complication of substance-induced condition: uncomplicated Qualified Code(s ): F10.230 - Alcohol dependence with withdrawal, uncomplicated (3) Pancreatitis Current Visit: Yes Status: Acute Assessment and plan: Lipase is elevated on admission. Patient denies abdominal pain. Lipase trend down now. Will gradually advance diet and closely monitor patient. Now patient tolerate regular diet well Qualifiers: Chronicity: acute Pancreatitis type: alcohol induced Acute pancreatitis complication: no infection or necrosis Qualified Code(s): K85.20 - Alcohol induced acute pancreatitis without necrosis or infection (4) Acute kidney injury Current Visit: Yes Status: Acute Assessment and plan: Improved after hydration (5) DVT prophylaxis Current Visit: Yes Status: Acute Assessment and plan: EPCDs (6) Suicidal ideation Current Visit: Yes Status: Acute Assessment and plan: Patient is threatening to kill himself by gun. Not threatened to kill/harm other people. Psychiatry consult appreciated. We will continue sitter. Consider patient has depression. Celexa started. Patient needs to be transferred to inpatient psychiatry for treatment upon discharge - Time Spent With Patient 25 - 35 minutes - Subjective Interval history: Patient is a 47-year-old male transferred from the [place] for alcohol withdraw symptoms. His past medical history is significant for alcoholism, GERD. I saw and examined the patient today. Patient is awake alert, oriented 3. Denies nausea vomiting, diaphoresis, tremors. Vital signs stable. Denies abdominal pain. On Librium 25 mg by mouth 2 times a day for withdrawal prevention. On CIWA protocol. Advance diet as tolerated. Psychiatry consult appreciated, patient has suicidal idea and depression, Celexa started. - Constitutional Vitals: Temp Pulse Resp BP Pulse Ox 97.1 F L 102 16 141/91 93 03/12/17 10:28 03/12/17 10:28 03/12/17 10:28 03/12/17 10:28 03/12/17 10:28 General appearance: Present: mild distress, A&O X 3, answers questions appropriately - Head Head exam: Present: atraumatic, normocephalic - Eye Eye exam: Present: PERRL, conjuntiva pink, sclera anicteric Pupils: Present: PERRL - Neck Neck exam general surgery: Present: supple, trachea midline. Absent: lymphadenopathy - Respiratory Respiratory exam: Present: CTAB. Absent: accessory muscle use, rales, rhonchi, wheezes - Cardiovascular Cardiovascular exam: Present: RRR, +S1, +S2. Absent: diastolic murmur, gallop, rubs, systolic murmur - GI/Abdominal GI/Abdominal exam: Present: normal bowel sounds, soft, no peritoneal signs. Absent: distended, tenderness - Extremities Exam Extremities exam: Present: warm, radial pulses palpable and symmetrical. Absent : calf tenderness, cyanotic, pedal edema - Neurological Exam Neurological exam: Present: CN II-XII intact, oriented X3, no focal deficits. Absent: pronater drift, facial droop, speech deficit - Skin Skin exam: Present: dry, intact Internal Medicine: Result - Labs CBC & Chem 7: 03/11/17 03:47 03/11/17 03:47 - ABG Interpretation ABG results: PT/INR, D-dimer PT 11.3 Seconds (9.4-12.1) 03/09/17 05:18 Consult Discharge Plan - Plan [facility]errals: [facility] [Primary Care Provider] -
[2017-03-13] MEDS: Thiamine (B-1) 100 MG TABLET PO SCH (10:01)
[2017-03-13] MEDS: Folic Acid 1 MG TABLET PO SCH (10:02)
[2017-03-13] MEDS: Nicotine 21 MG PATCH.TD24 TD SCH (10:02)
[2017-03-13 10:48] LABS: Lipase 160 Units/L (8-78)
[2017-03-13] MEDS: amLODIPine 5 MG TABLET PO SCH (10:49)
[2017-03-13] MEDS: 0.9 % Sodium Chloride 1,000 ML IVC SCH (14:06)
--- NOTE | 2017-03-13 20:54 | Internal Med Progress Note ---
Date of Encounter: 03/13/17 Time of Encounter: 10:00 - Assessment and plan (1) Hypokalemia Current Visit: Yes Status: Acute Assessment and plan: Improved after supplement. Follow up BMP (2) Alcohol withdrawal Current Visit: Yes Status: Acute Assessment and plan: Patient has no withdrawal symptoms at this point. We will continue closely monitor patient. Follow CIWA protocol. Taper down Librium to 25 mg daily. Give pt thiamine and folic acid supplement Qualifiers: Complication of substance-induced condition: uncomplicated Qualified Code(s ): F10.230 - Alcohol dependence with withdrawal, uncomplicated (3) Pancreatitis Current Visit: Yes Status: Acute Assessment and plan: Lipase is elevated on admission. Patient denies abdominal pain. Lipase trend down now. Patient tolerate regular diet well. As a his lipase always over normal limits, an IV contrasted abdominal CT has been done, shows no pancreatitis or other pancreas abnormality. Probably patient has a high baseline lipase level. Not considered patient has acute pancreatitis. Qualifiers: Chronicity: acute Pancreatitis type: alcohol induced Acute pancreatitis complication: no infection or necrosis Qualified Code(s): K85.20 - Alcohol induced acute pancreatitis without necrosis or infection (4) Acute kidney injury Current Visit: Yes Status: Acute Assessment and plan: Improved after hydration (5) DVT prophylaxis Current Visit: Yes Status: Acute Assessment and plan: EPCDs (6) Suicidal ideation Current Visit: Yes Status: Acute Assessment and plan: Patient is threatening to kill himself by gun. Not threatened to kill/harm other people. Psychiatry consult appreciated. We will continue sitter. Consider patient has depression. Celexa started. Patient needs to be transferred to inpatient psychiatry for treatment upon discharge - Time Spent With Patient 25 - 35 minutes - Subjective Interval history: Patient is a 47-year-old male transferred from the [place] for alcohol withdraw symptoms. His past medical history is significant for alcoholism, GERD. I saw and examined the patient today. Patient is awake alert, oriented 3. Denies nausea vomiting, diaphoresis, tremors. Vital signs stable. Denies abdominal pain. On Librium 25 mg once a day for withdrawal prevention. On CIWA protocol. Advance diet to regular diet now. Psychiatry consult appreciated, patient has suicidal idea and depression, Celexa started. - Constitutional Vitals: Temp Pulse Resp BP Pulse Ox 97.7 F 64 15 144/81 95 03/13/17 16:45 03/13/17 16:45 03/13/17 16:45 03/13/17 16:45 03/13/17 16:45 General appearance: Present: mild distress, A&O X 3, answers questions appropriately - Head Head exam: Present: atraumatic, normocephalic - Eye Eye exam: Present: PERRL, conjuntiva pink, sclera anicteric Pupils: Present: PERRL - Neck Neck exam general surgery: Present: supple, trachea midline. Absent: lymphadenopathy - Respiratory Respiratory exam: Present: CTAB. Absent: accessory muscle use, rales, rhonchi, wheezes - Cardiovascular Cardiovascular exam: Present: RRR, +S1, +S2. Absent: diastolic murmur, gallop, rubs, systolic murmur - GI/Abdominal GI/Abdominal exam: Present: normal bowel sounds, soft, no peritoneal signs. Absent: distended, tenderness - Extremities Exam Extremities exam: Present: warm, radial pulses palpable and symmetrical. Absent : calf tenderness, cyanotic, pedal edema - Neurological Exam Neurological exam: Present: CN II-XII intact, oriented X3, no focal deficits. Absent: pronater drift, facial droop, speech deficit - Skin Skin exam: Present: dry, intact Internal Medicine: Result - Labs CBC & Chem 7: 03/11/17 03:47 03/11/17 03:47 Labs: BMP 03/11/17 03:47 Sodium 136 Potassium 3.9 Chloride 105 Carbon Dioxide 23 BUN 19 Creatinine 0.90 Glucose 97 Calcium 8.7 - ABG Interpretation ABG results: PT/INR, D-dimer PT 11.3 Seconds (9.4-12.1) 03/09/17 05:18 - Impressions Impressions Abdomen/Pelvis CT 03/13/17 12:46 IMPRESSION: 1. No acute process. No evidence of pancreatitis in this patient with history of elevated lipase 2. Right adrenal nodules. These likely represent adenomas in the absence of known malignancy D/ / Teddy Moss MD / Teddy Moss MD Interpreting Provider: Teddy Moss MD Consult Discharge Plan - Plan [facility]errals: [facility] [Primary Care Provider] -
[2017-03-14] MEDS: 0.9 % Sodium Chloride 1,000 ML IVC SCH (02:58)
[2017-03-14 05:28] LABS: Basophils # 0.2 K/mcL (0.0-0.2); Eosinophils # 0.1 K/mcL (0.0-0.6); Eosinophils % 1.4 %; Hematocrit 39.3 % (37.5-50.1); Hemoglobin 12.8 g/dL (12.9-16.9); Immature Granulocytes % 4.6 % (0-4); Lymphocytes # 3.7 K/mcL (0.6-4.6); Lymphocytes % 40.2 %; Mean Corpuscular HGB Conc 32.6 g/dL (31.6-35.5); Mean Corpuscular Hemoglobin 30.6 pg (28.0-33.3); Monocytes # 1.3 K/mcL (0.0-1.3); Monocytes % 13.9 %; Neutrophils # 3.5 K/mcL (1.6-8.9); Platelet Count 254 K/mcL (140-400); Red Blood Count 4.18 M/mcL (4.19-5.50); Red Cell Distribution Width 16.4 % (11.5-14.5); Segmented Neutrophils % 37.9 %
[2017-03-14 05:53] LABS: BUN/Creatinine Ratio 22 (6-26); Blood Urea Nitrogen 19 mg/dL (8-26); Calcium 9.1 mg/dL (8.6-10.8); Carbon Dioxide 21 mEq/L (19-29); Chloride 108 mEq/L (98-109); Glucose 74 mg/dL (70-99); Osmolality,Calculated 291 (280-300); Potassium 3.9 mEq/L (3.5-4.5); Sodium 140 mEq/L (136-145); eGFR For African Americans > 60 (> 60); eGFR For Non-African Americans > 60 (> 60)
[2017-03-14 08:23] LABS: Lipase 119 Units/L (8-78)
[2017-03-14] MEDS: amLODIPine 5 MG TABLET PO SCH (08:57)
[2017-03-14] MEDS: Thiamine (B-1) 100 MG TABLET PO SCH (08:58)
[2017-03-14] MEDS: Nicotine 21 MG PATCH.TD24 TD SCH (08:58)
[2017-03-14] MEDS: Folic Acid 1 MG TABLET PO SCH (08:58)
[2017-03-14 12:44] VITALS: BP 123/84
--- NOTE | 2017-03-14 13:05 | Discharge Summary ---
Date of Encounter: 03/14/17 Time of Encounter: 11:00 - Discharge Diagnosis (1) Hypokalemia Priority: Primary Status: Acute (2) Alcohol withdrawal Priority: Primary Status: Acute Qualifiers: Complication of substance-induced condition: uncomplicated Qualified Code(s ): F10.230 - Alcohol dependence with withdrawal, uncomplicated (3) Pancreatitis Priority: Primary Status: Ruled-out Qualifiers: Chronicity: acute Pancreatitis type: alcohol induced Acute pancreatitis complication: no infection or necrosis Qualified Code(s): K85.20 - Alcohol induced acute pancreatitis without necrosis or infection (4) Acute kidney injury Priority: Primary Status: Acute (5) DVT prophylaxis Priority: Secondary Status: Acute (6) Suicidal ideation Priority: Primary Status: Acute (7) Hypertension Priority: Primary Status: Chronic Qualifiers: Hypertension type: essential hypertension Qualified Code(s): I10 - Essential (primary) hypertension - Discharge Medications Home Medications: Omeprazole [PriLOSEC] 20 mg PO DAILY 03/08/17 [History] Citalopram [CeleXA] 10 mg PO DAILY tablet 03/14/17 [Rx] Folic Acid 1 mg PO DAILY tablet 03/14/17 [Rx] Nicotine Patch [Nicoderm] 21 mg TD DAILY patch.td24 03/14/17 [Rx] Thiamine (B-1) [Vitamin B-1] 100 mg PO DAILY tablet 03/14/17 [Rx] amLODIPine [Norvasc] 5 mg PO DAILY tablet 03/14/17 [Rx] Allergies/Adverse Reactions: 3 Allergy/AdvReac Type Severity Reaction Status Date / Time bee venom protein (honey bee) Allergy Hives Verified 03/08/17 18:49 Poison Stephy Extract Allergy Hives Verified 03/08/17 18:49 Procedures/tests Complete & Pending: Procedures Performed prior 72 hours Category Date Time Status CT abd pelvis w iv no oral [CT] Stat Cat Scan 03/13/17 12:46 Completed - Notes to Outpatient Provider 1. Patient was placed on amlodipine 5 mg daily for hypertension, please follow- up BP level. Date of admission: 03/08/17 20:42 Primary care physician: [facility] Consults: 03/08/17 22:04 Consult to Nutrition [CONS] Routine Comment: Consulting Provider: NUTRITION Reason for Dietary Consult: PO Supplementation 03/09/17 08:05 Consult to Counsel [CONS] Routine Reason for SW Consult: alcohol withdraw 03/11/17 16:23 Consult to Psychiatry [CONS] Stat Consulting Provider: Deangelo Lisa Reason for Consult: Suicidal idea Call Completed: Yes Discharging clinician: Francis Rodrigues Anticipated date of discharge: 03/14/17 - Patient Status Disposition: Transfer Psychiatric Hosp Condition: Good Functional capacity at discharge: independent ambulation Overall status at discharge: patient is progressing back to baseline - Discharge Instructions Follow Up With: OR,PCP [Primary Care Provider] - - Diet and Activity Activity: increase activity as tolerated Diet: low salt diet, regular diet Interval History: HPI on admission: Mr. Miramontes is a 47 year old male who was transferred from the [facility] to our ER for concerns of alcohol withdrawal. He checked himself in today for alcohol rehabilitation. However, he stopped drinking alcohol about 2-3 days ago and was having withdrawal symptoms. He was sent to the urgent care who then sent him to the ER here. He had laboratory evidence of pancreatitis. CT scan was performed which did not show any pancreatitis, but he did have hiatal hernia and moderate thickening of his esophagus. No labs were drawn in ER until I requested them. I reviewed his labs from the [facility], which revealed profound hypokalemia and some hyponatremia. Upon my assessment of the patient, he states he feels better. He has been having protracted nausea and vomiting for the last couple days and as recently as one hour ago. He denies any fevers or diarrhea. He denies any hallucinations. He has been shaky and jittery, however. He has also been quite tremulous. He stopped drinking about 2 1/2 days ago. He states he normally drinks about 1/5 of hard liquor every day. He denies any history of cirrhosis, variceal bleeds, or any prior GI bleeding. He does have a history of GERD which is easily treated by Prilosec. Hospital course: Mr. Miramontes is a 47 year old male was admitted for alcohol withdrawal and suspected pancreatitis. Patient was placed on nothing by mouth, IV fluid, and symptomatic treatment for nausea. Patient was placed on CIWA protocol for alcohol withdrawal prevention. His electrolyte abnormality has been corrected. After treatment, patient doing fine, no signs of withdrawal. By mouth Librium has been gradually tapered down. Patient threatened to harm himself when he talked to our clinical social worker and the nursing staff, psychiatry consult was called, patient was considered severe major depression disorder, patient was placed on Celexa 10 mg by mouth daily, one to one sitter, and recommend inpatient psychiatry treatment. Patient has mild hypertension, which is treated with amlodipine 5 mg by mouth daily. Patient will transfer to [place] psychiatry unit for further management. I saw and examined the patient today. He is awake alert, oriented 3. Vitals are stable. Denies nausea vomiting or abdominal pain. Patient will transfer to [place] psychiatry for further management. Time spent discussing smoking cessation with patient: 3 to 10 minutes - Time Spent with Patient Total time spent providing and/or coordinating discharge services: 40 minutes Greater than 30 minutes - Constitutional Vitals: Temp Pulse Resp BP Pulse Ox 97.5 F L 70 15 123/84 97 03/14/17 12:43 03/14/17 12:43 03/14/17 12:43 03/14/17 12:43 03/14/17 12:43 General appearance: Present: mild distress, A&O X 3, answers questions appropriately - Head Head exam: Present: atraumatic, normocephalic - Eye Eye exam: Present: PERRL, conjuntiva pink, sclera anicteric Pupils: Present: PERRL - Neck Neck exam general surgery: Present: supple, trachea midline. Absent: lymphadenopathy - Respiratory Respiratory exam: Present: CTAB. Absent: accessory muscle use, rales, rhonchi, wheezes - Cardiovascular Cardiovascular exam: Present: RRR, +S1, +S2. Absent: diastolic murmur, gallop, rubs, systolic murmur - GI/Abdominal GI/Abdominal exam: Present: normal bowel sounds, soft, no peritoneal signs. Absent: distended, tenderness - Extremities Exam Extremities exam: Present: warm, radial pulses palpable and symmetrical. Absent : calf tenderness, cyanotic, pedal edema - Neurological Exam Neurological exam: Present: CN II-XII intact, oriented X3, no focal deficits. Absent: pronater drift, facial droop, speech deficit - Skin Skin exam: Present: dry, intact
--- NOTE | 2017-03-14 13:17 | Physician Discharge Referral ---
[facility] Referral Info Transfer To: [facility] Provider in Charge after Transfer: Other - Diagnosis (1) Hypokalemia Priority: Primary Status: Acute (2) Alcohol withdrawal Priority: Primary Status: Acute (3) Pancreatitis Priority: Primary Status: Ruled-out (4) Acute kidney injury Priority: Primary Status: Acute (5) DVT prophylaxis Priority: Secondary Status: Acute (6) Suicidal ideation Priority: Primary Status: Acute (7) Hypertension Priority: Primary Status: Chronic - Transfer Medications Home Medications: Omeprazole [PriLOSEC] 20 mg PO DAILY 03/08/17 [History] Citalopram [CeleXA] 10 mg PO DAILY tablet 03/14/17 [Rx] Folic Acid 1 mg PO DAILY tablet 03/14/17 [Rx] Nicotine Patch [Nicoderm] 21 mg TD DAILY patch.td24 03/14/17 [Rx] Thiamine (B-1) [Vitamin B-1] 100 mg PO DAILY tablet 03/14/17 [Rx] amLODIPine [Norvasc] 5 mg PO DAILY tablet 03/14/17 [Rx] Allergies/Adverse Reactions: 3 Allergy/AdvReac Type Severity Reaction Status Date / Time bee venom protein (honey bee) Allergy Hives Verified 03/08/17 18:49 Poison Stephy Extract Allergy Hives Verified 03/08/17 18:49 - Respiratory Orders Smoking Cessation: Smoking cessation has been advised. For more information, call the [place] Tobacco Quit Line at 2-744-FZNENOW. - Advance Directives Code Status: Full Code - Diet Orders Cardiac CERTIFICATION: I certify that the transfer of the above named patient to an Extended Care Facility is necessary for the continuing treatment of the diagnosis listed. The above information is true and accurate reflection of patient's current condition. Confidential - Redisclosure prohibited without a patient's written consent.
== END 2017-03-14 14:00 | DRG 897 ==
LOC: 2NENU 18:45 → EMEROO 18:45 → OBSVTOIN 20:42 → 2NENU 21:26 → 3ANU 03-10 23:36
PROVIDERS: ADMIT Pediatrics; ATTEND Internal Medicine